=== PATIENT | male | born 1975 | race Caucasian/White ===

== ENCOUNTER 2017-09-26 18:23 | Emergency (ER) | payer BC ==
--- NOTE | 2017-09-26 19:13 | ED ---
Bite Injury/Animal - HPI Summary HPI Summary: 42-year-old male presents with dog bite on Monday. He states that he tried to prevent his dog from killing a cat so he stepped in front with his leg. He states that his dog bit his right calf. He states he cleaned the area with peroxide afterwards. His last tetanus was a year ago. He states that he used saline o clean the area every day. He states that today he notices spreading redness. He states that this morning there is small amount of redness and now it has spread. He denies any fevers or chills. No fatigue. He is not diabetic. he denies any pus from the wounds. He has two bite olivas to his calf. he states the area continues to bleed. - History of Current Complaint Chief Complaint: EDAnimalBite Stated Complaint: RIGHT LEG DOG BITE Time Seen by Provider: 09/26/17 18:32 Pain Intensity: 2 - Allergies/Home Medications Allergies/Adverse Reactions: Allergies Allergy/AdvReac Type Severity Reaction Status Date / Time No Known Allergies Allergy Verified 09/26/17 18:30 PMH/Surg Hx/FS Hx/Imm Hx Endocrine/Hematology History: Denies: Hx Anticoagulant Therapy, Hx Diabetes Cardiovascular History: Denies: Hx Hypertension Sensory History: Denies: Hx Contacts or Glasses, Hx Hearing Aid Opthamlomology History: Denies: Hx Contacts or Glasses - Surgical History Surgery Procedure, Year, and Place: 2010 IRRIGATION AND DEBRIDEMENT RIGHT LEG FOR STAPH INFECTION, [facility] Hx Anesthesia Reactions: No Infectious Disease History: No Infectious Disease History: Denies: Traveled Outside the [place] in Last 30 Days - Family History Known Family History: Positive: Hypertension - Social History Alcohol Use: None Substance Use Type: Reports: None Smoking Status (MU): Unknown if Ever Smoked Review of Systems Negative: Fever Negative: Chest Pain Negative: Shortness Of Breath Positive: Rash, Other - dog bite right calf All Other Systems Reviewed And Are Negative: Yes Physical Exam Triage Information Reviewed: Yes Vital Signs On Initial Exam: Initial Vitals Temp Pulse Resp BP Pulse Ox 98.9 F 82 18 113/88 96 09/26/17 18:26 09/26/17 18:26 09/26/17 18:26 09/26/17 18:26 09/26/17 18:26 Vital Signs Reviewed: Yes Appearance: Positive: Well-Appearing Skin: Positive: Warm, Dry, Other - right leg bite two with erythema on right calf Head/Face: Positive: Normal Head/Face Inspection Eyes: Positive: Normal, Conjunctiva Clear ENT: Positive: Normal ENT inspection, Pharynx normal Respiratory/Lung Sounds: Positive: Clear to Auscultation, Breath Sounds Present Cardiovascular: Positive: Normal, RRR Musculoskeletal: Positive: Strength/ROM Intact - right calf, Other - good pulses , normal gait Neurological: Positive: Normal Psychiatric: Positive: Normal Diagnostics - Vital Signs Vital Signs Temp Pulse Resp BP Pulse Ox 09/26/17 18:26 98.9 F 82 18 113/88 96 - Laboratory Lab Statement: Any lab studies that have been ordered have been reviewed, and results considered in the medical decision making process. Bite Injury Course/Dx - Course Course Of Treatment: 42-year-old male presents with dog bite on Monday. He states that he tried to prevent his dog from killing a cat so he stepped in front with his leg. He states that his dog bit his right calf. He states he cleaned the area with peroxide afterwards. His last tetanus was a year ago. He states that he used saline o clean the area every day. He states that today he notices spreading redness. He states that this morning there is small amount of redness and now it has spread. He denies any fevers or chills. No fatigue. He is not diabetic. he denies any pus from the wounds. He has two bite olivas to his calf. he states the area continues to bleed. believes dogs immunizations up to date. on exam has two 2cm bites on right calf. has surrounding erythema across right calf. vitals stable so will not get lab work. will place on augmentin and told if redness spreads or if develops fever to return. told to continue to keep area clean. told to follow up with primary. blood pressure is elevated at this visit so will have follow up with primary about such. patient understand and agrees with plan. - Diagnoses Differential Diagnosis/HQI/PQRI: Positive: Cellulitis, Puncture, Superficial Infection Provider Diagnosis: Cellulitis, Dog bite of right calf, Elevated blood pressure reading Discharge - Sign-Out/Discharge Documenting (check all that apply): Discharge/Admit/Transfer - Discharge Plan Condition: Good Disposition: HOME Prescriptions: Amoxicillin/Clavulanate TAB* [Augmentin TAB 875*] 875 mg PO BID #19 tab Patient Education Materials: Cellulitis (ED) Referrals: Jayden Prince MD [Primary Care Provider] - Additional Instructions: take augmentin twice a day for 10 days elevate Follow up with primary within 3 days Return to ED if develop fever, area of redness spreads after two days, or any new or worsening symptoms - Billing Disposition and Condition Condition: GOOD Disposition: Home
[2017-09-26] MEDS ORDERED: Amoxicillin/Clavulanate TAB* 875 MG PO ONE (19:14)
[2017-09-26 20:01] VITALS: BP 150/80
== END 2017-09-26 20:00 | disposition home or self-care (01) ==
LOC: ED 18:23
DX: S81.831A Puncture wound without foreign body, right lower leg, initial encounter (principal); L03.115 Cellulitis of right lower limb; W54.0XXA Bitten by dog, initial encounter; Y93.89 Activity, other specified; Y92.9 Unspecified place or not applicable; R03.0 Elevated blood-pressure reading, without diagnosis of hypertension; Z82.49 Family history of ischemic heart disease and other diseases of the circulatory system
CPT/HCPCS: 99282; A9270-GY

== ENCOUNTER 2017-11-27 21:19 | Emergency (ER) | payer BC ==
--- NOTE | 2017-11-27 22:49 | ED ---
Upper Extremity Pain - HPI Summary HPI Summary: Complains of right upper arm pain and popping sound after lifting hot tub tonight. Denies any other injuries or symptoms. - History of Current Complaint Chief Complaint: EDExtremityUpper Stated Complaint: RT ARM SWOLLEN Time Seen by Provider: 11/27/17 21:50 Hx Obtained From: Patient Mechanism Of Injury: Unknown Onset/Duration: Started Hours Ago Timing: Constant Severity Initially: Moderate Severity Currently: Mild Pain Location: Arm Character: Aching Aggravating Factor(s): Movement Alleviating Factor(s): Nothing Associated Signs & Symptoms: Positive: Negative - Allergies/Home Medications Allergies/Adverse Reactions: Allergies Allergy/AdvReac Type Severity Reaction Status Date / Time No Known Allergies Allergy Verified 11/27/17 21:25 PMH/Surg Hx/FS Hx/Imm Hx Endocrine/Hematology History: Denies: Hx Anticoagulant Therapy, Hx Diabetes Cardiovascular History: Denies: Hx Hypertension Sensory History: Denies: Hx Contacts or Glasses, Hx Hearing Aid Opthamlomology History: Denies: Hx Contacts or Glasses - Surgical History Surgery Procedure, Year, and Place: 2010 IRRIGATION AND DEBRIDEMENT RIGHT LEG FOR STAPH INFECTION, [facility] Hx Anesthesia Reactions: No Infectious Disease History: No Infectious Disease History: Denies: Traveled Outside the [place] in Last 30 Days - Family History Known Family History: Positive: Hypertension - Social History Alcohol Use: Weekly Substance Use Type: Reports: Marijuana Substance Use Comment - Amount & Last Used: Daily Smoking Status (MU): Heavy Every Day Tobacco Smoker Review of Systems Constitutional: Negative Eyes: Negative ENT: Negative Cardiovascular: Negative Respiratory: Negative Gastrointestinal: Negative Genitourinary: Negative Musculoskeletal: Negative Skin: Negative Neurological: Negative Psychological: Normal All Other Systems Reviewed And Are Negative: Yes Physical Exam - Summary Physical Exam Summary: Obvious bulging deformity to right bicep. No ecchymosis noted. Flexion and extension of right elbow intact. PMS intact distally Triage Information Reviewed: Yes Vital Signs On Initial Exam: Initial Vitals Temp Pulse Resp BP Pulse Ox 98.1 F 82 18 147/99 99 11/27/17 21:21 11/27/17 21:21 11/27/17 21:21 11/27/17 21:21 11/27/17 21:21 Vital Signs Reviewed: Yes Appearance: Positive: Well-Appearing Skin: Positive: Warm Head/Face: Positive: Normal Head/Face Inspection Eyes: Positive: Normal Neck: Positive: Supple Respiratory/Lung Sounds: Positive: Clear to Auscultation Cardiovascular: Positive: Normal Abdomen Description: Positive: Nontender Musculoskeletal: Positive: Normal Neurological: Positive: Normal Psychiatric: Positive: Normal AVPU Assessment: Alert - [place] Coma Scale Best Eye Response: 4 - Spontaneous Best Motor Response: 6 - Obeys Commands Best Verbal Response: 5 - Oriented Coma Scale Total: 15 Diagnostics - Vital Signs Vital Signs Temp Pulse Resp BP Pulse Ox 11/27/17 21:21 98.1 F 82 18 147/99 99 - Laboratory Lab Statement: Any lab studies that have been ordered have been reviewed, and results considered in the medical decision making process. Course/Dx - Course Course Of Treatment: Complains of right upper arm pain and popping sound after lifting hot tub tonight. Denies any other injuries or symptoms. Obvious bulging deformity to right bicep. No ecchymosis noted. Flexion and extension of right elbow intact. PMS intact distally. Follow-up with orthopedics for further evaluation of likely biceps tendon rupture. Patient placed in sling. - Diagnoses Provider Diagnoses: Tear of right biceps muscle Discharge - Sign-Out/Discharge Documenting (check all that apply): Patient Departure - Discharge Plan Condition: Stable Disposition: HOME Patient Education Materials: Tendon Rupture (ED) Referrals: Jayden Prince MD [Primary Care Provider] - Abiodun Goodwin MD [Medical Doctor] - Additional Instructions: Follow-up with orthopedics Dr. Goodwin tomorrow. Ice, naproxen, rest for right arm. Return to the ED for any new or worsening symptoms - Billing Disposition and Condition Condition: STABLE Disposition: Home
[2017-11-27 23:11] VITALS: BP 152/98
== END 2017-11-27 23:09 | disposition home or self-care (01) ==
LOC: ED 21:19
DX: S46.211A Strain of muscle, fascia and tendon of other parts of biceps, right arm, initial encounter (principal); X50.0XXA Overexertion from strenuous movement or load, initial encounter; Y92.9 Unspecified place or not applicable; F17.200 Nicotine dependence, unspecified, uncomplicated
CPT/HCPCS: 99282